=== PATIENT | male | born 1975 | race Caucasian/White ===

== ENCOUNTER 2018-07-28 15:49 | Day surgery (SDC) | payer OTHER ==
[~2018-07-28 15:49] MED LIST: CEPH500C24 PO; LOR5/325 PO
--- NOTE | 2018-07-28 16:00 | ER Report ---
History and Physical Time Seen By MD: 15:59 Hx. of Stated Complaint: PT STATES ATE STEAK LAST NIGHT AND FEELS SOMETING IS STUCK. UNABLE TO SWALLOW ANYTHING FULLY. INTERMITTANT PAIN HPI/ROS CHIEF COMPLAINT: Foreign body HISTORY OF PRESENT ILLNESS: This is a 43-year-old male presents to the emergency department for a foreign body. Patient states that around 7 or 8:00 last night he was eating dinner, got a piece of steak stuck in his esophagus. States he's been up all night unable to swallow his tried drinking water but he was vomiting the water up. Patient states that now he feels as though the pain has moved to the right costal margin, states the last time he threw up he did throw up some bright red blood. This is never happened previously. No fevers or chills. No chest pain. No rashes. REVIEW OF SYSTEMS: Constitutional: No fever, no chills. Eyes: No discharge. ENT: No sore throat. Cardiovascular: No chest pain, no palpitations. Respiratory: No cough, no shortness of breath. Gastrointestinal: As above. Genitourinary: No hematuria. Musculoskeletal: No back pain. Skin: No rashes. Neurological: No headache. Allergies: Coded Allergies: codeine (Verified Adverse Reaction, Intermediate, NAUSEA, 07/28/18) Home Meds Discontinued Scripts Cephalexin Monohydrate (CEPHALEXIN) 500 Mg Cap, 500 MG PO Q6H for infection, #28 CAP TAKE 1 CAPSULE BY MOUTH EVERY SIX HOURS Prov:EVA HUNTER MD 03/08/15 Hydrocodone Bit/Acetaminophen (HYDROCODON-ACETAMINOPHEN 5-325) 1 Each Tablet, 1 EACH PO Q4-6H for PAIN, #20 TAKE ONE TABLET BY MOUTH EVERY 4-6 HOURS NEEDED FOR PAIN Prov:EVA HUNTER MD 03/08/15 Past Medical/Surgical History The patient has a past medical and surgical history of asthma, ulcers as a young man, wears contacts, right hand surgery. Reviewed Nurses Notes: Yes Hx Smoking: Yes (1PPD) Smoking Status: Current: Every Day Smoker Hx Substance Use Disorder: No Constitutional Vital Sign - Last 24 Hours 07/28/18 07/28/18 07/28/18 07/28/18 15:53 15:54 16:00 16:30 Temp 98.7 Pulse 91 Resp 20 B/P (MAP) 141/101 141/101 (114) 141/89 (106) 139/96 (110) Pulse Ox 92 O2 Delivery Room Air 07/28/18 07/28/18 16:49 17:00 Pulse 82 B/P (MAP) 140/89 (106) Pulse Ox 94 Physical Exam General Appearance: The patient is alert, has no immediate need for airway protection and no signs of toxicity. Eyes: Pupils equal and round no pallor or injection. ENT, Mouth: Mucous membranes are moist. Respiratory: There are no retractions, lungs are clear to auscultation. Cardiovascular: Regular rate and rhythm, no murmurs, clicks or rubs. Gastrointestinal: Abdomen is soft, mild tenderness to the right upper quadrant along the costal margin, no masses, hypoactive bowel sounds. No abdominal bruits. Neurological: Alert and oriented 4. Moving all extremities. Following all commands. No focal neuro deficits. Skin: Warm and dry, no rashes. Musculoskeletal: Neck is supple non tender. Extremities are nontender, nonswollen and have full range of motion. DIFFERENTIAL DIAGNOSIS: After history and physical exam differential diagnosis was considered for abdominal pain including but not limited to appendicitis, cholecystitis, esophageal foreign body, gastritis and urinary tract infection. Medical Decision Making Data Points Result Diagram: 07/28/18 1612 07/28/18 1612 Laboratory Hematology Test 07/28/18 16:12 Red Blood Count 5.11 M/uL (4.00-5.60) Mean Corpuscular Volume 96.7 fL (80.0-96.0) Mean Corpuscular Hemoglobin 33.3 pg (26.0-33.0) Mean Corpuscular Hemoglobin Concent 34.4 g/dL (32.0-36.0) Red Cell Distribution Width 13.2 % (11.5-14.5) Mean Platelet Volume 9.0 fL (7.2-11.1) Neutrophils (%) (Auto) 81.8 % (39.4-72.5) Lymphocytes (%) (Auto) 9.4 % (17.6-49.6) Monocytes (%) (Auto) 5.3 % (4.1-12.4) Eosinophils (%) (Auto) 2.8 % (0.4-6.7) Basophils (%) (Auto) 0.7 % (0.3-1.4) Nucleated RBC Relative Count (auto) 0.0 /100WBC Neutrophils # (Auto) 12.2 K/uL (2.0-7.4) Lymphocytes # (Auto) 1.4 K/uL (1.3-3.6) Monocytes # (Auto) 0.8 K/uL (0.3-1.0) Eosinophils # (Auto) 0.4 K/uL (0.0-0.5) Basophils # (Auto) 0.1 K/uL (0.0-0.1) Nucleated RBC Absolute Count (auto) 0.00 K/uL Sodium Level 142 mmol/L (137-145) Potassium Level 3.8 mmol/L (3.5-5.0) Chloride Level 110 mmol/L (98-107) Carbon Dioxide Level 21 mmol/L (22-30) Blood Urea Nitrogen 10 mg/dl (9-21) Creatinine 0.70 mg/dl (0.66-1.25) Glomerular Filtration Rate Calc > 60.0 Random Glucose 109 mg/dl (75-110) Calcium Level 9.5 mg/dl (8.4-10.2) Chemistry Test 07/28/18 16:12 White Blood Count 14.9 k/uL (4.5-11.0) Red Blood Count 5.11 M/uL (4.00-5.60) Hemoglobin 17.0 g/dL (14.0-18.0) Hematocrit 49.5 % (42.0-52.0) Mean Corpuscular Volume 96.7 fL (80.0-96.0) Mean Corpuscular Hemoglobin 33.3 pg (26.0-33.0) Mean Corpuscular Hemoglobin Concent 34.4 g/dL (32.0-36.0) Red Cell Distribution Width 13.2 % (11.5-14.5) Platelet Count 216 K/uL (150-450) Mean Platelet Volume 9.0 fL (7.2-11.1) Neutrophils (%) (Auto) 81.8 % (39.4-72.5) Lymphocytes (%) (Auto) 9.4 % (17.6-49.6) Monocytes (%) (Auto) 5.3 % (4.1-12.4) Eosinophils (%) (Auto) 2.8 % (0.4-6.7) Basophils (%) (Auto) 0.7 % (0.3-1.4) Nucleated RBC Relative Count (auto) 0.0 /100WBC Neutrophils # (Auto) 12.2 K/uL (2.0-7.4) Lymphocytes # (Auto) 1.4 K/uL (1.3-3.6) Monocytes # (Auto) 0.8 K/uL (0.3-1.0) Eosinophils # (Auto) 0.4 K/uL (0.0-0.5) Basophils # (Auto) 0.1 K/uL (0.0-0.1) Nucleated RBC Absolute Count (auto) 0.00 K/uL Glomerular Filtration Rate Calc > 60.0 Calcium Level 9.5 mg/dl (8.4-10.2) EKG/Imaging Imaging Location[place] [facility] [place] Patient: Octavio Justin : 1975 Visit/Account:[id number] Date of Sevice: 07/28/2018 Exam type: CHEST PA LAT History: eval for esophageal FB Comparison: None. Findings: The lungs are free of acute effusions, infiltrates or edema. No radiopaque soft tissue foreign bodies are identified. The cardiac silhouette is normal in size. There are mild spondylotic changes of the thoracic spine. IMPRESSION: 1. No evidence of pulmonary consolidation No radiopaque foreign body seen Report Dictated By: Laura Puente MD at 07/28/2018 4:43 PM Report E-Signed By: Laura Puente MD at 07/28/2018 4:45 PM WSN:[email or web address] [place] [facility] [place] Patient: Octavio Justin : 1975 Visit/Account:[id number] Date of Sevice: 07/28/2018 Exam type: KUB SINGLE VIEW ABDOMEN History: ruq pain, FB in esoph Comparison: None. Findings: There is nonspecific bowel gas pattern present. There is no gross evidence organomegaly or pathologic intra-abdominal calcification seen. Radiopaque foreign body is not identified. There is a gentle levoconvex scoliosis lumbar spine IMPRESSION: 1. Nonspecific bowel gas pattern Report Dictated By: Laura Puente MD at 07/28/2018 4:42 PM Report E-Signed By: Laura Puente MD at 07/28/2018 4:43 PM WSN:[email or web address] ED Course/Re-evaluation Clinical Indication for ER IV: IV Access ED Course Patient was admitted to room. Extremities were obtained. Differential diagnoses were considered. An IV was started. A CBC, CMP were obtained. CBC showing white count of 14.9, likely a stress response., Two-view chest x-ray and abdominal x- ray unremarkable for any acute findings. I did review the case with Dr. Sagastume, surgeon on-call, he did come down, evaluated the patient, patient will be going to surgery to have an esophageal foreign body removed. Patient is agreeable with this plan of care. 07/28/2018 4:41:21 pm I did speak with Dr. Sagastume regarding the patient's case, he is going to evaluate the patient's potentially take the patient to surgery for esophageal foreign body removal. Decision to Disposition Date: Jul 28, 2018 Decision to Disposition Time: 16:41 Depart Departure Latest Vital Signs Vital Signs Date Time Temp Pulse Resp B/P (MAP) Pulse Ox O2 Delivery O2 Flow Rate FiO2 07/28/18 17:00 140/89 (106) 07/28/18 16:49 82 94 07/28/18 15:53 98.7 20 Room Air Impression: Primary Impression: Esophageal foreign body Condition: Improved Disposition: ADMIT FROM ER TO OR New Scripts No Active Prescriptions or Reported Meds Problem Qualifiers Primary Impression: Esophageal foreign body Encounter type: initial encounter Qualified Codes: T18.108A - Unspecified foreign body in esophagus causing other injury, initial encounter SHRADDHA MCCANN BURNING SUPERVISOR-BC Jul 28, 2018 16:00
[2018-07-28 16:26] LABS: PLATELET COUNT, AUTOMATED 216 K/uL (150-450)
--- NOTE | 2018-07-28 16:47 | RADIOLOGY IMAGING REPORT ---
FACILITY: [facility] PATIENT NAME: Octavio Justin : 1975 MR: [id number] V: [id number] EXAM DATE: ORDERING PHYSICIAN: SHRADDHA MCCANN TECHNOLOGIST: Location: [facility] - [place] Patient: Octavio Justin : 1975 Visit/Account:[id number] Date of Sevice: 07/28/2018 Exam type: KUB SINGLE VIEW ABDOMEN History: ruq pain, FB in esoph Comparison: None. Findings: There is nonspecific bowel gas pattern present. There is no gross evidence organomegaly or pathologi c intra-abdominal calcification seen. Radiopaque foreign body is not identified. There is a gentle levoconvex scoliosis lumbar spine IMPRESSION: 1. Nonspecific bowel gas pattern Report Dictated By: Laura Puente MD at 07/28/2018 4:42 PM Report E-Signed By: Laura Puente MD at 07/28/2018 4:43 PM WSN:[email or web address]
--- NOTE | 2018-07-28 16:49 | RADIOLOGY IMAGING REPORT ---
FACILITY[place] [facility] [place] PATIENT NAME: Octavio Justin : 1975 MR: [id number] V: [id number] EXAM DATE: ORDERING PHYSICIAN: SHRADDHA MCCANN TECHNOLOGIST: Location: [facility] - [place] Patient: Octavio Justin : 1975 Visit/Account:[id number] Date of Sevice: 07/28/2018 Exam type: CHEST PA LAT History: eval for esophageal FB Comparison: None. Findings: The lungs are free of acute effusions, infiltrates or edema. No radiopaque soft tissue foreign sridevi s are identified. The cardiac silhouette is normal in size. There are mild spondylotic changes of t he thoracic spine. IMPRESSION: 1. No evidence of pulmonary consolidation No radiopaque foreign body seen Report Dictated By: Laura Puente MD at 07/28/2018 4:43 PM Report E-Signed By: Laura Puente MD at 07/28/2018 4:45 PM WSN:[email or web address]
[2018-07-28] MEDS ORDERED: AMPICILLIN/SULBACT (*) 3 GM VL 3 GM in NS(*) 0.9% 100 ML BAG 100 ML IVPB ONE (16:55)
[2018-07-28 17:00] VITALS: BP 140/89
--- NOTE | 2018-07-28 17:01 | Gen Surgery History & Physical ---
History of Present Illness Chief Complaint Feels like meat is stuck in his esophagus History of Present Illness 43yo male presents to the ER with the feeling that meat that he ate last night is lodged in his esophagus. Last night, about 20 hours ago, he was eating steak for dinner when he felt that a piece became stuck in his esophagus. He has not been able to eat or drink since then. This is the first time this has occurred to him. No dysphagia or chronic reflux symptoms. He's never before had an EGD. He's on no stomach medications. History Home Meds Discontinued Scripts Cephalexin Monohydrate (CEPHALEXIN) 500 Mg Cap, 500 MG PO Q6H for infection, #28 CAP TAKE 1 CAPSULE BY MOUTH EVERY SIX HOURS Prov:EVA HUNTER MD 03/08/15 Hydrocodone Bit/Acetaminophen (HYDROCODON-ACETAMINOPHEN 5-325) 1 Each Tablet, 1 EACH PO Q4-6H for PAIN, #20 TAKE ONE TABLET BY MOUTH EVERY 4-6 HOURS NEEDED FOR PAIN Prov:EVA HUNTER MD 03/08/15 Allergies: Coded Allergies: codeine (Verified Adverse Reaction, Intermediate, NAUSEA, 07/28/18) Review of Systems All Systems Reviewed/Normal: Yes, Except as Noted Exam General Appearance: Alert, Awake, No Acute Distress, Afebrile Neuro: No Gross deficits Eyes: PERRLA GI: Abd Soft and Non-Tender Extremities: Warm, Perfused Psych: Alert & Oriented X3, Appropriate Mood & Affect Medical Decision Making Data Points Result Diagram: 07/28/18 1612 07/28/18 1612 Assessment and Plan Problems: (1) Esophageal foreign body Status: Acute Assessment & Plan: 07/28/18: Will bring to endosuite and perform upper GI endoscopy with removal of esophageal foreign body. I have explained the plan including the procedure to the patient and his in great detail along with the alternatives and risks and their questions have been answered. He would like to proceed with this plan including EGD with FB removal. Condition stable. Time Spent: < 30 min Venous Thromboembolism VTE Risk Physician Assess for VTE Risk: Yes Patient's VTE Risk: Low VTE Diagnostic Test 2 Days Prior to Admit: No Antithrombotics Is Pt On Any Antithrombotics?: No Problem Qualifiers (1) Esophageal foreign body: Encounter type: initial encounter Qualified Codes: T18.108A - Unspecified foreign body in esophagus causing other injury, initial encounter ROCKY,RADHA MD Jul 28, 2018 17:01
[2018-07-28] MEDS ORDERED: ROCURONIUM BROM 10 MG/ML 10 ML ONE (17:39)
[2018-07-28] MEDS ORDERED: ONDANSETRON 4 MG/2 ML VIAL ONE (17:39)
[2018-07-28] MEDS ORDERED: SUCCINYLCHOL CHL 200MG/10ML VL ONE (17:39)
[2018-07-28] MEDS ORDERED: DEXAMETHASONE SOD PHOS 10MG/ML ONE (17:39)
[2018-07-28] MEDS ORDERED: PROPOFOL EMUL(*) 10MG/ML 20 ML 20 ML ONE (17:39)
[2018-07-28] MEDS ORDERED: SUGAMMADEX SOD 200 MG/2 ML SDV ONE ×2 (18:48→18:52)
[2018-07-28] MEDS ORDERED: PANT40TA65 PO (19:06)
[2018-07-28] MEDS ORDERED: PANTOPRAZOLE SOD 40 MG IV VIAL IVP ONE (19:10)
--- NOTE | 2018-07-28 19:12 | Short(Outpt) Discharge Summary ---
Discharge Summary Reason for Hosp/Final Diag: (1) Esophageal foreign body Status: Acute Hospital Course & Plan: 07/28/18: Will bring to endosuite and perform upper GI endoscopy with removal of esophageal foreign body. I have explained the plan including the procedure to the patient and his in great detail along with the alternatives and risks and their questions have been answered. He would like to proceed with this plan including EGD with FB removal. Departure Discharge to: Home, Self Care Discharge Instructions Home Meds Active Scripts Pantoprazole Sodium (PANTOPRAZOLE SODIUM) 40 Mg Tablet.dr, 1 TAB PO BID, #60 TAB 3 Refills Take 1 tablet twice each day on an empty stomach and wait 30 minutes before eating Prov:TERRANCE HIDALGO MD 07/28/18 Discontinued Scripts Cephalexin Monohydrate (CEPHALEXIN) 500 Mg Cap, 500 MG PO Q6H for infection, #28 CAP TAKE 1 CAPSULE BY MOUTH EVERY SIX HOURS Prov:EVA HUNTER MD 03/08/15 Hydrocodone Bit/Acetaminophen (HYDROCODON-ACETAMINOPHEN 5-325) 1 Each Tablet, 1 EACH PO Q4-6H for PAIN, #20 TAKE ONE TABLET BY MOUTH EVERY 4-6 HOURS NEEDED FOR PAIN Prov:EVA HUNTER MD 03/08/15 Follow up Referrals: General Surgery - 07/28/18 @ Surgery, General with TERRANCE HIDALGO MD You have a follow up appointment scheduled with Dr. Hidalgo on 08/17/18, at 1:30pm. Diet: Regular Activity: As Tolerated Special Instructions: Eat only soft foods such as scrambled eggs, mashed potatoes, jell-o, yogurt, etc (avoid anything with chunks) until 07/31/18, then you can resume regular foods. Take the pantoprazole, 40mg (1 tablet) twice each day on an empty stomach and wait 30 minutes before eating. Make sure you always cut your food into pieces no larger than your thumbnail and thoroughly chew your food. Your esophagus is pretty traumatized and very inflamed and so I would like to see you in my office in 3 weeks to see how you're recovering and I recommend that we repeat the upper endoscopy in 6 weeks to ensure your esophagus is healed and see if we can come down on the pantoprazole. Problem Qualifiers (1) Esophageal foreign body: Encounter type: initial encounter Qualified Codes: T18.108A - Unspecified foreign body in esophagus causing other injury, initial encounter TERRANCE HIDALGO MD Jul 28, 2018 19:12
[2018-07-29] MEDS ORDERED: GLUCAGON 1 MG KIT ONE (06:01)
== END 2018-07-28 20:00 | disposition home or self-care (01) ==
LOC: ER 16:05 → EDBEDREQ 17:07 → EDBEDREQSVC 17:07 → EDBEDREQTM 17:07 → OR 17:07
PROVIDERS: ATTEND Surgery
DX: T18.128A Food in esophagus causing other injury, initial encounter (principal)
CPT/HCPCS: 43247; 71046; 74018; 85025; 99284; C9113; J0330; J1100; J2405; J2704; 82310; 82374; 82435; 82565; 82947; 84132; 84295; 84520; J1610

== ENCOUNTER → 2018-09-14 | Day surgery (SDC) | payer OTHER ==
[~2018-09-14] VITALS: Ht 182.9 cm; Wt 70.3 kg
[~2018-09-14] MED LIST changes: +LIDOCAINE/SOD BICARB 8.4% SYR ID ONE; +NORMOSOL R SOLN(*) 1000 ML BAG 1,000 ML IV PRN; +PANT40TA65 PO; +PROPOFOL EMUL(*) 10MG/ML 20 ML 20 ML ONE
[2018-09-14 11:20] VITALS: BP 131/87
[2018-09-14 11:46] VITALS: BP 112/81
--- NOTE | 2018-09-14 11:52 | Short(Outpt) Discharge Summary ---
Discharge Summary Reason for Hosp/Final Diag: (1) Esophageal foreign body Status: Resolved Hospital Course & Plan: EGD completed without problems. There was a schatki's ring at GE junction but wide open and too wide to dilate. No other abnormalities. Departure Discharge to: Home, Self Care Discharge Instructions Home Meds Active Scripts Pantoprazole Sodium (PANTOPRAZOLE SODIUM) 40 Mg Tablet.dr, 1 TAB PO QDAY, #60 TAB 3 Refills Take 1 tablet once each day on an empty stomach and wait 30 minutes before eating Prov:TERRANCE HIDALGO MD 08/29/18 Diet: Regular Activity: As Tolerated Special Instructions: Your upper endoscopy was completed without problems. I saw only a very mild Schatki's ring where your esopagus empties in to your stomach but it was very mild and too wide open to dilate. Everything else looked good. I recommend that you complete your course of pantoprazole until you run out of pills, including the refills, and then you can stop. For the last week of pills, take them every other day until you run out so you don't get rebound reflux from stopping them suddenly. Also, chew your food thoroughly, cut your food into pieces no larger than your thumb nail, and eat slowly. Call my office if you have any issues with food hanging up or other upper GI concerns. Problem Qualifiers (1) Esophageal foreign body: Encounter type: subsequent encounter Qualified Codes: T18.108D - Unspecified foreign body in esophagus causing other injury, subsequent encounter TERRANCE HIDALGO MD Sep 14, 2018 11:52
[2018-09-14 12:00] VITALS: BP_SYST 118; BP_SYST 121; BP_DIAS 81; BP_DIAS 88
[2018-09-14 12:15] VITALS: BP 127/86
== END ==
LOC: OR 00:15
PROVIDERS: ATTEND Surgery
DX: K22.2 Esophageal obstruction (principal); K44.9 Diaphragmatic hernia without obstruction or gangrene
CPT/HCPCS: 43235; J2704